=== PATIENT | female | born 1965 | race Caucasian/White ===

== ENCOUNTER 2017-10-25 16:18 | Outpatient (REF) | payer OTHER, SELFPAY ==
--- NOTE | 2017-10-25 13:40 | PAPFT_PTH ---
PATIENT: Consuelo Evans LOC: [facility] U#:[id number] AGE/SX: 52/F ROOM: RE10/25/[address]: Catalina Mae : 1965 BED: DIS: 10/25/2017 SPEC #: [id number] RECD: 10/25/17 18:52 STATUS: TRAVIS REQ #: [id number] LOKESH: 10/25/17 13:[address]: Catalina Mae DEPT: [facility] Cytology RECD BY: Sana Robles ENTERED: 10/25/17 18:52 SP TYPE: PAPFT CHRISTINA DR: Pallavi Joseph Tissues: 1 - CX/ENDOCX FOR PAP SMEARS Procedures: PAP THIN PREP/UVM Screening HPV DNA PROBE Comments: [id number]
== END 2017-10-25 16:38 ==
LOC: LBN 16:18
PROVIDERS: Visit Provider Obstetrics & Gynecology Gynecology
DX: Z12.4 Encounter for screening for malignant neoplasm of cervix (principal); Z11.51 Encounter for screening for human papillomavirus (HPV)
CPT/HCPCS: 88142; 87624

== ENCOUNTER 2018-09-13 00:31 | Outpatient (CLI) | payer OTHER, SELFPAY ==
--- NOTE | 2018-09-13 13:08 | DI.US_ITS ---
SYMPTOMS/DIAGNOSIS: H/O FIBROIDS, D25.9, ANNUAL CHECKUP PELVIC ULTRASOUND: Transabdominal and transvaginal examination was performed. Comparison is 08/17/17. The uterus measures 8.1 cm long x 3.7 cm AP x 5.4 cm transverse. The endometrial stripe is within normal limits at 4.2 mm. There is a 1.1 x 0.9 x 0.8 cm hypoechoic lesion in the fundus of the uterus, likely reflecting a fibroid. Both ovaries were visualized. They are normal in size and appearance with normal blood flow. No evidence of torsion. No free fluid or pelvic masses identified. IMPRESSION: Uterine fibroid.
== END 2018-09-13 00:51 ==
PROVIDERS: Visit Provider Specialist
DX: D25.9 Leiomyoma of uterus, unspecified (principal)
CPT/HCPCS: 76830; 76856

== ENCOUNTER 2019-06-14 08:30 | Outpatient (CLI) | payer OTHER, SELFPAY ==
[2019-06-15 18:51] LABS: COVID-19 RT-PCR UVMMC Result Negative (Negative)
== END 2019-06-14 08:50 ==
PROVIDERS: PCP Family Medicine; Visit Provider Family Medicine
DX: Z11.59 Encounter for screening for other viral diseases (principal)
CPT/HCPCS: U0003

== ENCOUNTER 2019-09-04 01:41 | Outpatient (CLI) | payer OTHER, SELFPAY ==
--- NOTE | 2019-09-04 12:45 | DI.US_ITS ---
EXAM: US PELVIS TRANSVAGINAL CLINICAL HISTORY: hx of HRT, Z79.890. TECHNIQUE: Transabdominal and transvaginal pelvic ultrasound was performed using standard protocol. COMPARISON: US PELVIS TRANSVAG from 09/06/2017 US US PELVIS TRANSVAGINAL from 09/13/2018 US US PELVIS TRANSVAGINAL from 09/13/2018 FINDINGS: KIDNEYS: Kidneys are symmetric in size. No evidence of renal calculi. No evidence of hydronephrosis. No renal mass or cyst identified. UTERUS: Position: Anteverted. Size: 8.1 long by 4.7 AP by 6.0 transverse cm Endometrium: 0.6 cm. Normal for patient's menstrual status. Myometrium: Unremarkable. Previously noted fibroid is not well visualized on the current examination. Cervix: Unremarkable. OVARIES: Right: 2 x 0.9 x 1.0 cm Cyst or mass: None. Left: 1.9 x 1 x 1.1 cm Cyst or mass: None. DOPPLER: Color: Symmetric and uniform flow to both ovaries. No hyperemia. Duplex: Normal ovarian arterial waveforms visualized. CUL-DE-SAC: Free fluid: None. Other: None. IMPRESSION: 1. Normal sonographic appearance of the kidneys. 2. Normal-appearing uterus with endometrial stripe within normal limits. Previously noted uterine fi broid is not well visualized on the current examination. 3. Unremarkable bilateral ovaries. DATA REPOSITORY:
== END 2019-09-04 02:01 ==
PROVIDERS: PCP Family Medicine; Visit Provider Obstetrics & Gynecology Gynecology
DX: Z79.890 Hormone replacement therapy (principal)
CPT/HCPCS: 76830; 76856

== ENCOUNTER 2019-09-20 03:36 | Outpatient (CLI) | payer OTHER, SELFPAY ==
[2019-09-20 07:37] LABS: Abs Immature Grans 0.01 10^3/uL (0.0-0.06); Absolute Basophil Count 0.03 10^3/uL (0.0-0.2); Absolute Eosinophil Count 0.09 10^3/uL (0.0-0.7); Absolute Lymphocyte Count 1.47 10^3/uL (1.2-3.4); Absolute Monocyte Count 0.38 10^3/uL (0.1-0.8); Absolute Neutrophil Count 4.15 10^3/uL (1.2-6.7); Basophils % 0.5; Eosinophils % 1.5; HCT 42.1 % (36.0-46.0); HGB 13.9 g/dL (11.2-15.7); Immature Grans % 0.2; MCH 30.3 pg (27.0-33.0); MCV 91.7 fL (80-95); MPV 11.3 fL (8.0-11.0); Monocytes % 6.2; Neutrophils % 67.6; Nucleated RBC 0 %; Platelet Count 252 10^3/uL (130-400); RBC 4.59 10^6/uL (3.93-5.22); RDW 13.2 % (11.7-14.6); RDW-SD 44.9 fL; WBC 6.13 10^3/uL (4.4-10.8)
[2019-09-20 07:44] LABS: Bilirubin Negative (Negative); Blood Negative (Negative); Clarity Clear (Clear); Glucose Negative (Negative); Ketones Negative (Negative); Leukocyte Esterase Negative (Negative); Nitrite Negative (Negative); Specific Gravity 1.015 (1.005-1.025); Urobilinogen 0.2 EU/dL (Up TO 0.2)
[2019-09-20 08:03] LABS: Hemoglobin A1C 5.6 % (3.8-5.6)
[2019-09-20 09:05] LABS: Total Iron Binding Capacity 241 ug/dL (250-450)
[2019-09-20 09:16] LABS: ALT 24 U/L (14-59); AST 17 U/L (15-37); Albumin 4.1 g/dL (3.4-5.0); Alkaline Phosphatase 61 U/L (46-116); Anion Gap 6.5 mmol/L (3-11); BUN 9 mg/dL (7-18); Bilirubin, Total 0.4 mg/dL (0.2-1.0); CO2 29.5 mmol/L (21.0-32.0); CREATININE 0.68 mg/dL (0.55-1.02); Calcium 9.2 mg/dL (8.5-10.1); Calculated LDL 99 mg/dL (<100); Chloride 103 mmol/L (98-107); Cholesterol 195 mg/dL (<200); Ferritin 118 ng/mL (8-252); Glucose 88 mg/dL (74-106); HDL Cholesterol 90 mg/dL (40-60); Potassium 3.8 mmol/L (3.5-5.1); Sodium 139 mmol/L (136-145); Triglyceride 30 mg/dL (<150)
[2019-09-21 09:08] LABS: Sex Hormone Binding Globulin 149.2 nmol/L (See Note)
[2019-09-21 09:11] LABS: FSH 45.4 mIU/mL (See Note)
[2019-09-21 09:54] LABS: Insulin 4.1 uIU/mL (<29.0)
== END 2019-09-20 03:56 ==
PROVIDERS: PCP Family Medicine; Visit Provider Obstetrics & Gynecology Gynecology
DX: N95.1 Menopausal and female climacteric states (principal); Z79.890 Hormone replacement therapy
CPT/HCPCS: 36415; 80053; 80061; 81003; 82728; 83001; 83036; 83525; 83550; 84270; 85025

== ENCOUNTER 2020-12-25 02:35 | Outpatient (CLI) | payer OTHER, SELFPAY ==
[2020-12-27 00:38] LABS: Zinc, Serum 0.82 mcg/mL (0.66-1.10)
[2021-01-03 09:22] LABS: Misc Referral (MAYO) See Comments
== END 2020-12-25 02:36 | disposition home or self-care (01) ==
LOC: LBO 02:35
PROVIDERS: PCP Family Medicine; Visit Provider Family Medicine
DX: E16.2 Hypoglycemia, unspecified (principal); E55.9 Vitamin D deficiency, unspecified; D50.9 Iron deficiency anemia, unspecified; R53.83 Other fatigue
CPT/HCPCS: 36415; 82525; 84630

== ENCOUNTER 2021-05-20 04:32 | Outpatient (CLI) | payer OTHER, SELFPAY ==
[2021-05-20 09:04] LABS: Lithium < 0.2 mmol/l (0.6-1.2)
[2021-05-20 09:31] LABS: Vitamin B12 625 pg/mL (193-986)
[2021-05-22 10:46] LABS: Riboflavin (Vitamin B2), P 9 mcg/L (1-19)
[2021-05-22 12:23] LABS: Zinc, Serum 0.91 mcg/mL (0.66-1.10)
[2021-05-22 13:51] LABS: Copper, Serum 1.34 mcg/mL (0.75-1.45)
[2021-05-23 09:59] LABS: Pyridoxal 5-Phosphate (PLP), P 15 mcg/L (5-50)
[2021-05-26 14:54] LABS: Niacin (Vitamin B3), Plasma 1.55 ug/mL
== END 2021-05-20 04:33 | disposition home or self-care (01) ==
LOC: LBO 04:32
PROVIDERS: PCP Family Medicine; Visit Provider Specialist
DX: N95.1 Menopausal and female climacteric states (principal); D25.9 Leiomyoma of uterus, unspecified; Z51.81 Encounter for therapeutic drug level monitoring; E16.2 Hypoglycemia, unspecified; E55.9 Vitamin D deficiency, unspecified; R53.82 Chronic fatigue, unspecified; D50.9 Iron deficiency anemia, unspecified; G47.00 Insomnia, unspecified
CPT/HCPCS: 84252; 84591; 80178; 82525; 82607; 84207; 84630

== ENCOUNTER 2022-03-03 03:30 | Outpatient (CLI) | payer OTHER, SELFPAY ==
[2022-03-04 14:48] LABS: BUN 21 mg/dL (7-18); CREATININE 0.8 mg/dL (0.55-1.02); Calcium 9.2 mg/dL (8.5-10.1); Estimated GFR 86.42 (mL/min/1.73m2); Glucose 92 mg/dL (74-106)
[2022-03-04 14:49] LABS: ALT 39 U/L (14-59); AST 25 U/L (15-37); Albumin 3.8 g/dL (3.4-5.0); Alkaline Phosphatase 91 U/L (46-116); Anion Gap 9.3 mmol/L (3-11); Bilirubin, Total 0.2 mg/dL (0.2-1.0); CO2 26.7 mmol/L (21.0-32.0); Calculated LDL 113 mg/dL (<100); Chloride 103 mmol/L (98-107); Cholesterol 199 mg/dL (<200); HDL Cholesterol 77 mg/dL (40-60); Potassium 4.1 mmol/L (3.5-5.1); Sodium 139 mmol/L (136-145); Total Protein 7.3 g/dL (6.4-8.2); Triglyceride 48 mg/dL (<150)
[2022-03-04 14:52] LABS: Lithium < 0.2 mmol/l (0.6-1.2)
[2022-03-07 12:33] LABS: Nicotinamide 26.2 ng/mL (5.0-48.0); Nicotinuric Acid <5.0 ng/mL
[2022-03-09 09:31] LABS: Insulin 6.4 uIU/mL (<29.0)
== END 2022-03-03 03:31 | disposition home or self-care (01) ==
LOC: LBO 03:30
PROVIDERS: PCP Family Medicine; Visit Provider Specialist
DX: E55.9 Vitamin D deficiency, unspecified (principal); D50.9 Iron deficiency anemia, unspecified; R53.82 Chronic fatigue, unspecified; N95.1 Menopausal and female climacteric states; E16.2 Hypoglycemia, unspecified; G47.00 Insomnia, unspecified; Z51.81 Encounter for therapeutic drug level monitoring; Z79.899 Other long term (current) drug therapy
CPT/HCPCS: 80053; 80061; 82542; 84591; 80178; 83525

== ENCOUNTER 2022-05-20 11:37 | Outpatient (CLI) | payer OTHER, SELFPAY ==
--- NOTE | 2022-05-20 | DI.RAD_ITS ---
Exam(s) XR CHEST 2V PA LATERAL EXAM: XR CHEST 2V PA LATERAL CLINICAL HISTORY: COUGH, R05.8 TECHNIQUE: 2D digital imaging was performed. COMPARISON: No exams were available for comparison FINDINGS: HEART: Normal size. Aorta: Not dilated. PULMONARY VASCULATURE: Normal. LUNGS: Clear. PLEURAL SPACE: No pleural effusion or pneumothorax. BONE:Unremarkable for age. IMPRESSION: No acute abnormality. DATA REPOSITORY: RADIATION DOSE DELIVERED:
== END 2022-05-20 11:57 ==
LOC: DI 11:41
PROVIDERS: PCP Family Medicine; Visit Provider Family Medicine
DX: R05.8 Other specified cough (principal)
CPT/HCPCS: 71046

== ENCOUNTER 2022-06-26 01:33 | Outpatient (CLI) | payer OTHER, SELFPAY ==
[2022-06-26 09:32] LABS: Ferritin 111 ng/mL (8-252)
[2022-06-26 09:43] LABS: Vitamin D 25 Total 51.1 ng/mL (30-100)
[2022-06-26 18:53] LABS: Estradiol 88 pg/mL (See Note); Progesterone 0.9 ng/mL (See Table)
[2022-06-26 18:59] LABS: FSH 20.4 mIU/mL (See Note)
[2022-06-29 09:38] LABS: Insulin 6.9 uIU/mL (<29.0)
== END 2022-06-26 01:34 | disposition home or self-care (01) ==
LOC: LBO 01:33
PROVIDERS: PCP Family Medicine; Visit Provider Specialist
DX: E55.9 Vitamin D deficiency, unspecified (principal); R53.82 Chronic fatigue, unspecified; D50.9 Iron deficiency anemia, unspecified; E16.2 Hypoglycemia, unspecified; N95.1 Menopausal and female climacteric states; G47.00 Insomnia, unspecified
CPT/HCPCS: 36415; 82306; 82670; 82728; 83001; 83525; 84144

== ENCOUNTER 2022-07-03 15:34 | Outpatient (REF) | payer OTHER, SELFPAY ==
--- NOTE | 2022-07-03 15:20 | PAPFT_PTH ---
PATIENT: Consuelo Evans LOC: [facility] U#:[id number] AGE/SX: 56/F ROOM: RE07/03/[address]: Aleta Hunter MD : 1965 BED: DIS: 07/03/2022 SPEC #: [id number] RECD: 07/06/22 13:07 STATUS: TRAVIS US #: [id number] LOKESH: 07/03/22 15:[address]: Aleta Hunter DEPT: [facility] Cytology RECD BY: Sana Robles ENTERED: 07/06/22 13:08 SP TYPE: PAPFT OTHR DR: Sujatha Whitfield Tissues: 1 - CX/ENDOCX FOR PAP SMEARS Procedures: PAP THIN PREP/UVM Screening HPV DNA PROBE Comments: [id number]
== END 2022-07-03 15:35 | disposition home or self-care (01) ==
LOC: LBN 15:34
PROVIDERS: PCP Family Medicine; Visit Provider Obstetrics & Gynecology
DX: Z12.4 Encounter for screening for malignant neoplasm of cervix (principal); Z11.51 Encounter for screening for human papillomavirus (HPV)
CPT/HCPCS: 88142; 87624

== ENCOUNTER 2022-11-25 02:04 | Outpatient (CLI) | payer OTHER, SELFPAY ==
[2022-11-25 08:01] LABS: Hemoglobin A1C 6.1 % (<5.7)
[2022-11-25 08:24] LABS: ALT 29 U/L (14-59); AST 22 U/L (15-37); Albumin 3.8 g/dL (3.4-5.0); Alkaline Phosphatase 81 U/L (46-116); Anion Gap 7.2 mmol/L (3-11); BUN 10 mg/dL (7-18); Bilirubin, Total 0.4 mg/dL (0.2-1.0); CO2 26.8 mmol/L (21.0-32.0); CREATININE 0.8 mg/dL (0.55-1.02); Calcium 9.3 mg/dL (8.5-10.1); Chloride 103 mmol/L (98-107); Estimated GFR 85.89 (mL/min/1.73m2); Glucose 100 mg/dL (74-106); Potassium 3.8 mmol/L (3.5-5.1); Sodium 137 mmol/L (136-145); Total Protein 7.7 g/dL (6.4-8.2)
[2022-11-25 17:51] LABS: Estradiol 30 pg/mL (See Note); Progesterone 0.9 ng/mL (See Table)
[2022-11-25 19:22] LABS: FSH 40.5 mIU/mL (See Note)
[2022-11-26 08:38] LABS: Insulin 5.3 uIU/mL (<29.0)
[2022-11-27 09:54] LABS: Homocysteine 6.8 umol/L (5.0-13.9)
== END 2022-11-25 02:05 | disposition home or self-care (01) ==
PROVIDERS: PCP Family Medicine; Visit Provider Specialist
DX: E16.2 Hypoglycemia, unspecified (principal); E55.9 Vitamin D deficiency, unspecified; R53.83 Other fatigue; G47.00 Insomnia, unspecified; N95.1 Menopausal and female climacteric states; Z71.89 Other specified counseling
CPT/HCPCS: 36415; 80053; 83090; 82670; 83001; 83036; 83525; 84144

== ENCOUNTER 2023-06-28 04:59 | Outpatient (CLI) | payer OTHER, SELFPAY ==
[2023-06-28 17:05] LABS: Hemoglobin A1C 6.2 % (<5.7)
[2023-06-28 17:27] LABS: ALT 26 U/L (14-59); AST 17 U/L (15-37); Albumin 3.9 g/dL (3.4-5.0); Alkaline Phosphatase 85 U/L (46-116); Anion Gap 6.5 mmol/L (3-11); BUN 16 mg/dL (7-18); Bilirubin, Total 0.2 mg/dL (0.2-1.0); CO2 29.5 mmol/L (21.0-32.0); CREATININE 0.8 mg/dL (0.55-1.02); Calcium 9.2 mg/dL (8.5-10.1); Chloride 105 mmol/L (98-107); Estimated GFR 85.89 (mL/min/1.73m2); Ferritin 81 ng/mL (8-252); Glucose 113 mg/dL (74-106); Sodium 141 mmol/L (136-145); Total Protein 7.5 g/dL (6.4-8.2)
[2023-06-28 18:16] LABS: Vitamin D 25 Total 42.8 ng/mL (30-100)
[2023-06-29 18:44] LABS: Estradiol 48 pg/mL (See Note)
[2023-06-29 19:25] LABS: FSH 34.2 mIU/mL (See Note)
== END 2023-06-28 05:00 | disposition home or self-care (01) ==
LOC: LBO 04:59
PROVIDERS: PCP Family Medicine; Visit Provider Specialist
DX: E16.2 Hypoglycemia, unspecified (principal); E55.9 Vitamin D deficiency, unspecified; R53.82 Chronic fatigue, unspecified; Z71.89 Other specified counseling; N95.1 Menopausal and female climacteric states; D50.9 Iron deficiency anemia, unspecified
CPT/HCPCS: 36415; 80053; 82306; 82670; 82728; 83001; 83036

== ENCOUNTER 2024-01-08 12:27 | Outpatient (CLI) | payer OTHER, SELFPAY ==
--- NOTE | 2024-01-08 12:45 | DI.RAD_ITS ---
Exam(s) XR CHEST 2V PA LATERAL EXAM: XR CHEST 2V PA LATERAL CLINICAL HISTORY: evaluate pna. TECHNIQUE: 2D digital imaging was performed. COMPARISON: CR XR CHEST 2V PA LATERAL from 05/20/2022 FINDINGS: 2 views: Heart size is normal. The mediastinum is not widened. Left lung is clear. However, there is infiltrate in the right middle lobe evident. No pleural effus ion IMPRESSION: Right middle lobe infiltrate. DATA REPOSITORY: RADIATION DOSE DELIVERED:
--- NOTE | 2024-01-08 13:17 | DI.VRAD_ITS ---
PROCEDURE INFORMATION: Exam: XR Chest Exam date and time: 01/08/2024 12:57 PM Age: 58 years old Clinical indication: Cough; Additional info: Evaluate pna TECHNIQUE: Imaging protocol: Radiologic exam of the chest. Views: 2 views. COMPARISON: CR XR CHEST 2V PA LATERAL 05/20/2022 1:17 PM FINDINGS: Lungs: Mild opacity in the right middle lobe may represent atelectasis or pneumonia. It is more evident on the lateral. Pleural spaces: Unremarkable. No pleural effusion. No pneumothorax. Heart/Mediastinum: Unremarkable. No cardiomegaly. Bones/joints: Unremarkable. IMPRESSION: Mild opacity in the right middle lobe may represent atelectasis or pneumonia. It is more evident on the lateral. Dictated and Authenticated by: Agnes Abad MD. Ordering:MICHAEL Diamond MD
== END 2024-01-08 12:47 ==
PROVIDERS: PCP Family Medicine; Visit Provider Nurse Practitioner Family
DX: R05.9 Cough, unspecified (principal)
CPT/HCPCS: 71046

== ENCOUNTER 2024-02-24 05:02 | Outpatient (CLI) | payer OTHER, SELFPAY ==
[2024-03-01 15:45] LABS: Copper, RBCs 74 mcg/dL
== END 2024-02-24 05:03 | disposition home or self-care (01) ==
PROVIDERS: PCP Family Medicine; Visit Provider Specialist
DX: E16.2 Hypoglycemia, unspecified (principal); E55.9 Vitamin D deficiency, unspecified; R53.82 Chronic fatigue, unspecified; Z71.89 Other specified counseling; N95.1 Menopausal and female climacteric states; D50.9 Iron deficiency anemia, unspecified; G47.00 Insomnia, unspecified
CPT/HCPCS: 36415; 82525